=== PATIENT | female | born 1970 | race Caucasian/White ===

== ENCOUNTER 2023-05-31 00:12 | Emergency (ER) | payer BC ==
[2023-05-31 00:23] VITALS: BP 166/87; PULSE 86; RESP 20; BMI 29.0
== END 2023-05-31 01:46 | disposition home or self-care (01) ==
LOC: JER 00:12
DX: R51.9 Headache, unspecified (principal); R05.9 Cough, unspecified; I10 Essential (primary) hypertension
CPT/HCPCS: 99283-25